=== PATIENT | female | born 1995 | race Caucasian/White ===

== ENCOUNTER 2018-01-23 18:06 | Emergency (ER) | payer OTHER ==
[~2018-01-23] VITALS: Ht 154.9 cm; Wt 61.0 kg
[~2018-01-23 18:06] MED LIST: DOXY100T PO; NAPR500 PO; ZOFR4TAB3 SL
[2018-01-23 18:27] VITALS: BP 143/66; PULSE 96; RESP 15; TEMP 99; O2SAT 100
[2018-01-23] MEDS ORDERED: SODIUM CHLORIDE 0.9% FLUSH 10 ML FLUSH IVF PRN (20:00)
[2018-01-23 20:19] LABS: AUTOMATED NEUTROPHIL # 21.4 TH/MM3 (1.8-7.7); BASOPHIL # 0.1 TH/MM3 (0-0.2); BASOPHIL % 0.4 % (0.0-2.0); EOSINOPHIL % 0.1 % (0.0-4.0); HEMATOCRIT 36.8 % (35.0-46.0); LYMPH % 12.5 % (9.0-44.0); LYMPHOCYTE # 3.3 TH/MM3 (1.0-4.8); MEAN CELL VOLUME 81.5 FL (80.0-100.0); MEAN CORPUSCULAR HEMOGLOBIN 26.5 PG (27.0-34.0); MEAN CORPUSCULAR HGB CONC 32.5 % (32.0-36.0); MEAN PLATELET VOLUME 7.4 FL (7.0-11.0); MONO % 5.5 % (0.0-8.0); MONOCYTE # 1.5 TH/MM3 (0-0.9); NEUT % 81.5 % (16.0-70.0); PLATELET COUNT 335 TH/MM3 (150-450); RED BLOOD COUNT 4.51 MIL/MM3 (4.00-5.30); RED CELL DISTRIBUTION WIDTH 13.2 % (11.6-17.2); WHITE BLOOD COUNT 26.2 TH/MM3 (4.0-11.0)
[2018-01-23 20:26] LABS: AMORPHOUS SEDIMENT, URINE RARE; BACTERIA, URINE RARE /hpf; BILIRUBIN, URINE NEG (NEG); BLOOD, URINE NEG (NEG); GLUCOSE,URINE NEG (NEG); KETONE, URINE NEG (NEG); NITRITE,URINE NEG (NEG); PH, URINE 5.5 (5.0-8.5); SQUAMOUS EPITHELIAL CELL URINE 1 /hpf (0-5); URINE COLOR LIGHT-YELLOW (YELLW/STRAW); URINE LEUKOCYTE ESTERASE NEG (NEG)
[2018-01-23] MEDS ORDERED: LIDOCAINE HCL 1% 50 ML VIAL IM ONE (20:30)
[2018-01-23] MEDS ORDERED: metroNIDAZOLE 500 MG TAB PO ONE (20:30)
[2018-01-23] MEDS ORDERED: cefTRIAXone 250 MG VIAL IM ONE (20:30)
[2018-01-23] MEDS ORDERED: AZITHROMYCIN PWD FOR SUSP 1 GM PACKET PO ONE (20:30)
[2018-01-23] MEDS ORDERED: ETON1IMP I-DERMAL (20:30)
[2018-01-23] MEDS ORDERED: ONDANSETRON ODT 4 MG TAB PO ONE (20:30)
[2018-01-23 20:45] LABS: ALBUMIN 4.6 GM/DL (3.4-5.0); AST (GOT) 17 U/L (15-37); BLOOD UREA NITROGEN 6 MG/DL (7-18); CALCIUM 9.6 MG/DL (8.5-10.1); CHLORIDE 103 MEQ/L (98-107); CREATININE 0.66 MG/DL (0.50-1.00); GLOMERULAR FILTRATION RATE 111 ML/MIN (>89); GLUCOSE,RANDOM 84 MG/DL (74-106); SODIUM (NA) 138 MEQ/L (136-145)
[2018-01-23 20:49] LABS: ALKALINE PHOSPHATASE 72 U/L (45-117); ALT (GPT) 19 U/L (10-53); TOTAL BILIRUBIN ADULT 0.7 MG/DL (0.2-1.0); TOTAL PROTEIN 8.2 GM/DL (6.4-8.2)
[2018-01-23] MEDS ORDERED: LIDOCAINE HCL 1% 20 ML VIAL ONE (20:51)
--- NOTE | 2018-01-23 22:14 | PD ---
HPI Chief Complaint: Abdominal Pain Time Seen by Provider: 19:48 Travel History International Travel<30 days: No Contact w/Intl Traveler<30days: No Traveled to known affect area: No History of Present Illness HPI Is a 22-year-old woman who presents to the emergency department for evaluation of lower abdominal pain. She states has been worse over the past several days. She had a bad cold flu symptoms about 3 weeks ago. Her appetite is been cutting down ever since. She is developing him. Local right-sided abdominal pain over the past couple days. She is ongoing nausea but no real vomiting. No change in her bowel movements although she feels like she has to go but does not really go. No bowel movements today. No fevers or chills. Recently was diagnosed with herpes after reportedly getting out of a bad relationship. Denies being sexually active now. Has had some vaginal discharge over the past several days. She just finished her menstrual cycle and attributed the vaginal discharge to that. History Past Medical History Narrative Medical History of ovarian cyst treated with surgery, no other abdominal surgeries : 2 Para: 2 Social History Alcohol Use: No Tobacco Use: No Allergies-Medications (Allergen,Severity, Reaction): Coded Allergies: No Known Allergies (Unverified Adverse Reaction, Unknown, 01/23/18) Reported Meds & Prescriptions Reported Meds & Active Scripts Active Reported Nexplanon Implant (Etonogestrel Implant) 68 Mg Imp 68 Mg I-DERMAL ONCE Review of Systems Except as stated in HPI: all other systems reviewed are Neg Physical Exam Narrative GENERAL: 22-year-old woman, generally well-appearing. SKIN: Focused skin assessment warm/dry. NECK: Trachea midline. No JVD. CARDIOVASCULAR: Regular rate and rhythm. No murmur appreciated. RESPIRATORY: No accessory muscle use. Clear to auscultation. Breath sounds equal bilaterally. GASTROINTESTINAL: Abdomen is flat and soft. There is moderate right-sided tenderness with some voluntary guarding. MUSCULOSKELETAL: No obvious deformities. No clubbing. No cyanosis. No edema. NEUROLOGICAL: Awake and alert. No obvious cranial nerve deficits. Motor grossly within normal limits. Normal speech. PSYCHIATRIC: Appropriate mood and affect; insight and judgment normal. PELVIC: Normal external female genitalia. There is a moderate amount of mucopurulent cervical discharge. Moderate cervical motion tenderness and right adnexal tenderness. No palpable uterine enlargement or adnexal masses. Data Data Last Documented VS Vital Signs Date Time Temp Pulse Resp B/P (MAP) Pulse Ox O2 Delivery O2 Flow Rate FiO2 01/23/18 18:27 99.0 96 15 143/66 (91) 100 Orders Orders Complete Blood Count With Diff (01/23/18 19:56) Comprehensive Metabolic Panel (01/23/18 19:56) Gc And Chlamydia Pcr (01/23/18 19:56) Wet Prep Profile (01/23/18 19:56) Urinalysis - C+S If Indicated (01/23/18 19:56) Sodium Chloride 0.9% Flush (Ns Flush) (01/23/18 20:00) Ed Urine Pregnancytest Poc (01/23/18 19:56) Azithromycin Powd Pack (Zithromax Powd P (01/23/18 20:30) Ondansetron Odt (Zofran Odt) (01/23/18 20:30) Ceftriaxone Inj (Rocephin Inj) (01/23/18 20:30) Lidocaine 1% Inj (50 Ml) (Xylocaine 1% I (01/23/18 20:30) Metronidazole (Flagyl) (01/23/18 20:30) Lidocaine 1% Inj (Xylocaine 1% Inj) (01/23/18 20:51) Us Pelvis Comp W Dop Transvag (01/23/18 ) Labs Laboratory Tests Test 01/23/18 20:00 01/23/18 20:15 White Blood Count 26.2 TH/MM3 Red Blood Count 4.51 MIL/MM3 Hemoglobin 12.0 GM/DL Hematocrit 36.8 % Mean Corpuscular Volume 81.5 FL Mean Corpuscular Hemoglobin 26.5 PG Mean Corpuscular Hemoglobin Concent 32.5 % Red Cell Distribution Width 13.2 % Platelet Count 335 TH/MM3 Mean Platelet Volume 7.4 FL Neutrophils (%) (Auto) 81.5 % Lymphocytes (%) (Auto) 12.5 % Monocytes (%) (Auto) 5.5 % Eosinophils (%) (Auto) 0.1 % Basophils (%) (Auto) 0.4 % Neutrophils # (Auto) 21.4 TH/MM3 Lymphocytes # (Auto) 3.3 TH/MM3 Monocytes # (Auto) 1.5 TH/MM3 Eosinophils # (Auto) 0.0 TH/MM3 Basophils # (Auto) 0.1 TH/MM3 CBC Comment DIFF FINAL Differential Comment Urine Color LIGHT-YELLOW Urine Turbidity CLEAR Urine pH 5.5 Urine Specific [place] 1.005 Urine Protein NEG mg/dL Urine Glucose (UA) NEG mg/dL Urine Ketones NEG mg/dL Urine Occult Blood NEG Urine Nitrite NEG Urine Bilirubin NEG Urine Urobilinogen LESS THAN 2.0 MG/DL Urine Leukocyte Esterase NEG Urine RBC 1 /hpf Urine WBC LESS THAN 1 /hpf Urine Squamous Epithelial Cells 1 /hpf Urine Amorphous Sediment RARE Urine Bacteria RARE /hpf Microscopic Urinalysis Comment CULT NOT INDICATED Blood Urea Nitrogen 6 MG/DL Creatinine 0.66 MG/DL Random Glucose 84 MG/DL Total Protein 8.2 GM/DL Albumin 4.6 GM/DL Calcium Level 9.6 MG/DL Alkaline Phosphatase 72 U/L Aspartate Amino Transf (AST/SGOT) 17 U/L Alanine Aminotransferase (ALT/SGPT) 19 U/L Total Bilirubin 0.7 MG/DL Sodium Level 138 MEQ/L Potassium Level 3.2 MEQ/L Chloride Level 103 MEQ/L Carbon Dioxide Level 25.0 MEQ/L Anion Gap 10 MEQ/L Estimat Glomerular Filtration Rate 111 ML/MIN Clue Cells (Wet Prep) NONE SEEN Vaginal Trichomonas (Wet Prep) NONE SEEN Vaginal Yeast (Wet Prep) NONE SEEN MDM Medical Decision Making Medical Screen Exam Complete: Yes Emergency Medical Condition: Yes Interpretation(s) LABS: CBC remarkable for white count of 26.2 thousand. CMP is unremarkable. UA is unremarkable. Wet prep negative Pelvic ultrasound is unremarkable. Differential Diagnosis PID, TOA, appendicitis, UTI, gastritis, mesenteric adenitis, other Narrative Course Medical decision making 22-year-old woman, lower abdominal pain, worse on the right, recent diagnosis of STD, on exam has purulent drainage with cervical motion tenderness, suspect PID. I do not think she has appendicitis. Will get ultrasound to rule out TOA. Otherwise treatment for PID, return for any worsening symptoms. Diagnosis Primary Impression: PID (acute pelvic inflammatory disease) Patient Instructions: General Instructions Additional Instructions: Take antibiotics as prescribed. Return to the emergency department if worsening abdominal pain, any fevers, worsening nausea, or any other new or worsening symptoms. Followup with your outside sales associate for routine [employer] care and followup testing for other sexually transmitted infection such as HIV, hepatitis, syphilis. Any sexual partners you have should be tested and treated as well. You should not have sex until you have no symptoms, and your partners tested and treated as well. Med/Other Pt SpecificInfo: Prescription(s) given Disposition: 01 DISCHARGE HOME Condition: Hugh Estevez MD Jan 23, 2018 22:14
--- NOTE | 2018-01-23 22:45 | RADRPT ---
EXAM DATE/TIME: 01/23/2018 21:40 [facility] COMPARISON: No previous studies available for comparison. INDICATIONS : RLQ pain. MEDICAL HISTORY : . SURGICAL HISTORY : None. ENCOUNTER: Initial ACUITY: 1 day PAIN SCORE: 6/10 LOCATION: Right pelvis MEASUREMENTS: UTERUS: 7.3 x 5.2 x 4.0 cm ENDOMETRIAL STRIPE: 4 mm RIGHT OVARY: 2.3 x 1.9 x 1.7 cm LEFT OVARY: 3.6 x 2.9 x 3.7 cm FINDINGS: UTERUS: Focal hypodense area in the uterine fundus measuring 1.9 x 1.8 x 1.2 cm characteristic of a small fib roid. Otherwise, the uterus is sonographically normal RIGHT OVARY: Ovary contains no mass or significant cystic lesion. LEFT OVARY: Dominant cyst measuring 2.5 x 2.4 x 2.2 cm MISCELLANEOUS: Trace free fluid in the cul-de-sac CONCLUSION: 1. Small 2 cm fundal uterine fibroid. Uterus is otherwise sonographically intact. 2. Dominant 2.5 cm cyst in the left ovary. Ovaries are otherwise sonographically normal. 3. Trace free fluid in the cul-de-sac, well within the range of physiologic. Brayan Holland MD on January 23, 2018 at 22:40 Board Certified Radiologist. This report was verified electronically.
[2018-01-23] MEDS ORDERED: DOXY100C PO (23:18)
== END 2018-01-23 23:27 | disposition home or self-care (01) ==
LOC: NEPD 18:06
DX: D25.9 Leiomyoma of uterus, unspecified (principal); N83.202 Unspecified ovarian cyst, left side; N73.9 Female pelvic inflammatory disease, unspecified; R11.0 Nausea
CPT/HCPCS: 76830; 76856; 80053; 81001; 84703; 85025; 87210; 87491; 87591; 93975; 96372; 99284; J0696